=== PATIENT | female | born 1970 | race African-American/Black ===

== ENCOUNTER 2022-11-14 12:24 | Emergency (ER) | payer OTHER ==
[~2022-11-14] VITALS: Ht 162.6 cm; Wt 72.6 kg
== END 2022-11-14 13:49 | disposition home or self-care (01) ==
LOC: ED 12:24
DX: S61.552A Open bite of left wrist, initial encounter (principal); W54.0XXA Bitten by dog, initial encounter
CPT/HCPCS: 99283